=== PATIENT | male | born 1960 | race Caucasian/White ===

== ENCOUNTER 2017-04-08 19:17 | Emergency (ER) | payer BC, OTHER ==
[~2017-04-08] VITALS: Ht 172.7 cm; Wt 80.0 kg
[2017-04-09] MEDS ORDERED: KETOROLAC 60MG/2ML VIAL IM ONE
[2017-04-09 00:34] VITALS: BP 140/78
== END 2017-04-09 01:15 | disposition home or self-care (01) ==
LOC: ER 19:17
DX: G89.29 Other chronic pain (principal); M25.562 Pain in left knee
CPT/HCPCS: 96372; 99283; J1885